=== PATIENT | female | born 1995 | race Caucasian/White ===

== ENCOUNTER 2022-05-02 06:58 | Observation (INO) | payer MEDICAID ==
[~2022-05-02] VITALS: Ht 162.6 cm; Wt 113.4 kg
[2022-05-02 08:25] LABS: Urine Amorphous Crystal FEW /hpf (None Seen); Urine Bacteria FEW /hpf (None Seen); Urine Blood Negative /uL (Negative); Urine Mucus FEW (None Seen); Urine WBC 6 /hpf (0 - 5)
== END 2022-05-02 09:22 | disposition home or self-care (01) ==
LOC: LDRP 06:58
PROVIDERS: ADMIT Obstetrics & Gynecology; ATTEND Obstetrics & Gynecology
DX: O42.912 Preterm premature rupture of membranes, unspecified as to length of time between rupture and onset of labor, second trimester (principal); Z20.822 Contact with and (suspected) exposure to COVID-19; O62.9 Abnormality of forces of labor, unspecified; O36.8130 Decreased fetal movements, third trimester, not applicable or unspecified; Z3A.27 27 weeks gestation of pregnancy; Z79.899 Other long term (current) drug therapy
CPT/HCPCS: 36415; 59025; 76815; 81001; 81002; 84112; 87426; 94760; G0378; Q0114

== ENCOUNTER 2022-06-02 10:34 | Observation (INO) | payer MEDICAID, OTHER ==
[~2022-06-02] VITALS: Ht 162.6 cm; Wt 113.4 kg
[2022-06-02] MEDS ORDERED: ceFAZolin 1GM/50ML 50 ML IV STA (11:07)
[2022-06-02] MEDS ORDERED: ACETAMINOPHEN 325 MG TAB PO ONE ×2 (11:15→11:51)
[2022-06-02] MEDS ORDERED: LACTATED RINGER'S 1,000 ML IV ONE (11:15)
[2022-06-02] MEDS ORDERED: ceFAZolin 2 GM in D5W 5% 100 ML IV STA (11:31)
[2022-06-02 12:12] LABS: Urine Bacteria NONE SEEN /hpf (None Seen); Urine Blood Negative /uL (Negative); Urine Mucus FEW (None Seen); Urine Specific Gravity 1.019 (1.001-1.035); Urine WBC 2 /hpf (0 - 5)
[2022-06-02] MEDS ORDERED: ALBUTEROL SULF 2.5 MG/0.5ML(0.5%) NEB SOLN NEB PRN (13:15)
[2022-06-02] MEDS ORDERED: AZIT1POW PO (14:08)
== END 2022-06-02 14:21 | disposition home or self-care (01) ==
LOC: UNDOADMOB 10:34 → LDRP 10:34
PROVIDERS: ADMIT Obstetrics & Gynecology; ATTEND Obstetrics & Gynecology
DX: O99.513 Diseases of the respiratory system complicating pregnancy, third trimester (principal); Z20.822 Contact with and (suspected) exposure to COVID-19; J00 Acute nasopharyngitis [common cold]; R05.9 Cough, unspecified; J40 Bronchitis, not specified as acute or chronic; J06.9 Acute upper respiratory infection, unspecified; O26.893 Other specified pregnancy related conditions, third trimester; R10.30 Lower abdominal pain, unspecified; O62.9 Abnormality of forces of labor, unspecified; Z3A.32 32 weeks gestation of pregnancy
CPT/HCPCS: 36415; 59025; 81001; 81002; 87426; 94640; 96365; G0378; J0690; J7060; 96360; 96366

== ENCOUNTER 2022-06-04 15:51 | Observation (INO) | payer OTHER ==
[~2022-06-04 15:51] MED LIST: AZIT1POW PO
[2022-06-04] MEDS ORDERED: ALBU0.084 NEB (17:29)
== END 2022-06-04 17:43 | disposition home or self-care (01) ==
LOC: UNDOADMOB 15:51 → LDRP 15:51
PROVIDERS: ADMIT Obstetrics & Gynecology; ATTEND Obstetrics & Gynecology
DX: O62.9 Abnormality of forces of labor, unspecified (principal); O26.893 Other specified pregnancy related conditions, third trimester; R10.30 Lower abdominal pain, unspecified; R05.9 Cough, unspecified; J00 Acute nasopharyngitis [common cold]; O42.913 Preterm premature rupture of membranes, unspecified as to length of time between rupture and onset of labor, third trimester; Z3A.32 32 weeks gestation of pregnancy
CPT/HCPCS: 59025; 81002; 84112; G0378; Q0114

== ENCOUNTER 2022-06-19 05:52 | Observation (INO) | payer OTHER ==
[~2022-06-19 05:52] MED LIST changes: +ALBU0.084 NEB
[2022-06-19] MEDS ORDERED: PREN-96 PO (06:41)
== END 2022-06-19 07:28 | disposition home or self-care (01) ==
LOC: LDRP 05:52
PROVIDERS: ADMIT Obstetrics & Gynecology; ATTEND Obstetrics & Gynecology
DX: O36.8130 Decreased fetal movements, third trimester, not applicable or unspecified (principal); O26.893 Other specified pregnancy related conditions, third trimester; R10.2 Pelvic and perineal pain; R51.9 Headache, unspecified; R42 Dizziness and giddiness; O99.891 Other specified diseases and conditions complicating pregnancy; M54.9 Dorsalgia, unspecified; Z3A.34 34 weeks gestation of pregnancy
CPT/HCPCS: 59025; 76818; 81002; G0378

== ENCOUNTER 2023-04-22 14:35 | Emergency (ER) | payer MEDICAID ==
[~2023-04-22] VITALS: Ht 162.6 cm; Wt 118.0 kg
[~2023-04-22 14:35] MED LIST changes: +PREN-96 PO
[2023-04-22 14:59] LABS: Basophils # (auto) 0.1 10 ^3/uL (0-0.2); Eosinophils # (auto) 0.3 10 ^3/uL (0-0.8); Eosinophils % (auto) 2.6 % (0.0-7.0); Hematocrit 40.6 % (36.0-46.0); Hemoglobin 13.6 g/dL (12.2-16.2); Lymphocytes # (auto) 3.1 10 ^3/uL (0.4-5.4); Lymphocytes % (auto) 29.9 % (10.0-50.0); Mean Corpuscular Hemoglobin 28.7 pg (28.0-32.0); Mean Corpuscular Hgb Conc. 33.5 g/dL (32.0-36.0); Mean Corpuscular Volume 85.8 fL (80.0-100.0); Monocytes # (auto) 0.4 10 ^3/uL (0-1.3); Monocytes % (auto) 3.8 % (0.0-12.0); Neutrophils # (auto) 6.5 10 ^3/uL (1.6-8.6); Neutrophils % (auto) 62.7 % (37.0-80.0); Nucleated Red Blood Cells % 0.1 %; Red Blood Cells 4.73 10^6/uL (4.0-5.20); Red Cell Distribution Width 14.8 % (11.8-14.3); White Blood Cell 10.3 10^3/uL (4.4-10.8)
[2023-04-22] MEDS ORDERED: cloNIDine HCL 0.1 MG TAB PO ONE (15:00)
[2023-04-22 15:16] LABS: INR 0.99 (0.9-1.15); Partial Thromboplastin Time 31.3 SEC (24.5-34.5); Prothrombin Time 10.4 sec (9.3-11.8)
[2023-04-22 15:33] LABS: Alanine Aminotransferase 26 U/L (7-40); Albumin 4.5 g/dL (3.2-4.8); Alkaline Phosphatase 97 U/L (46-116); Anion Gap 6 (5-15); Aspartate Aminotransferase 13 U/L (13-40); BUN/Creatinine Ratio 9.4 (10.0-20.0); Blood Urea Nitrogen 8 mg/dL (9-23); Calcium 9.5 mg/dL (8.5-10.1); Carbon Dioxide 28 mmol/L (20-30); Chloride 103 mmol/L (98-107); Glucose 119 mg/dL (74-106); Potassium 4.2 mmol/L (3.5-5.1); Sodium 137 mmol/L (136-145)
[2023-04-22 15:34] LABS: Bilirubin, Total 0.2 mg/dL (0.2-1.0); Total Protein 6.9 g/dL (5.7-8.2)
[2023-04-22 15:39] LABS: Urine Bacteria FEW /hpf (None Seen); Urine Blood Negative /uL (Negative); Urine Clarity HAZY (Clear); Urine Color Colorless (Yellow); Urine Protein, UAD Negative (Negative); Urine Specific Gravity 1.014 (1.001-1.035); Urine Urobilinogen Normal (Negative); Urine WBC 119 /hpf (0 - 5)
[2023-04-22 15:41] VITALS: BP 134/102; PULSE 109; RESP 18; TEMP 97; O2SAT 98
[2023-04-22] MEDS ORDERED: CLON0.2T PO (16:16)
[2023-04-22] MEDS ORDERED: NITR-87 PO (16:16)
== END 2023-04-22 17:04 | disposition home or self-care (01) ==
LOC: ER 14:35
DX: I10 Essential (primary) hypertension (principal); R07.89 Other chest pain; N39.0 Urinary tract infection, site not specified; E66.01 Morbid (severe) obesity due to excess calories; Z68.41 Body mass index [BMI] 40.0-44.9, adult; Z79.899 Other long term (current) drug therapy
CPT/HCPCS: 36415; 71045; 80053; 81001; 81025; 84443; 84484; 85025; 85610; 85730; 93005

== ENCOUNTER 2023-06-11 21:29 | Emergency (ER) | payer MEDICAID ==
[~2023-06-11] VITALS: Ht 162.6 cm; Wt 118.9 kg
[~2023-06-11 21:29] MED LIST changes: +CLON0.2T PO; +NITR-87 PO
[2023-06-11 21:35] VITALS: BP 147/94; PULSE 109
[2023-06-11 22:17] LABS: Rapid Strep A Screen-Throat Negative
[2023-06-11 22:21] LABS: COVID19 ANTIGEN SOFIA FIA NEGATIVE (NEGATIVE)
[2023-06-11] MEDS ORDERED: IPRATROPIUM BROM 0.5 MG/2.5ML INH SOL NEB ONE (22:30)
[2023-06-11] MEDS ORDERED: DexAMETHasone SOD PHOS 10MG/1ML VIAL INJ IM ONE (22:30)
[2023-06-11] MEDS ORDERED: ALBUTEROL MEDNEB 2.5 mg/3ml NEB NEB ONE (22:30)
[2023-06-11 22:31] LABS: Rapid Influenza A Negative (Negative); Rapid Influenza B Negative (Negative)
[2023-06-11 22:37] VITALS: RESP 20; O2SAT 100
[2023-06-11] MEDS ORDERED: PRED20TA2 PO (22:52)
[2023-06-11] MEDS ORDERED: LIDO2SOL18 MT (22:52)
[2023-06-11] MEDS ORDERED: AZITTAB PO (22:52)
[2023-06-11] MEDS ORDERED: BENZ200C64 PO (22:52)
[2023-06-11] MEDS ORDERED: guaiFENesin-CODEINE Liq 5 ML UD PO ONE (23:00)
[2023-06-11] MEDS ORDERED: cefTRIAXone SOD 1,000 MG VL IM ONE (23:00)
== END 2023-06-12 04:07 | disposition home or self-care (01) ==
LOC: ER 21:29
DX: J20.9 Acute bronchitis, unspecified (principal); J03.90 Acute tonsillitis, unspecified; R06.02 Shortness of breath; R07.89 Other chest pain; Z20.822 Contact with and (suspected) exposure to COVID-19
CPT/HCPCS: 36415; 71045; 87070; 87426; 87804; 87880; 94640; 96372; 99284; J0696; J1100; J7644

== ENCOUNTER 2023-09-01 08:30 | Emergency (ER) | payer MEDICAID ==
[~2023-09-01] VITALS: Ht 162.6 cm; Wt 117.3 kg
[~2023-09-01 08:30] MED LIST changes: +AZITTAB PO; +BENZ200C64 PO; +LIDO2SOL18 MT; +PRED20TA2 PO
[2023-09-01 08:50] VITALS: PULSE 89; RESP 19; O2SAT 97
[2023-09-01] MEDS: IPRATROPIUM BROM 0.5 MG/2.5ML INH SOL NEB ONE ×2 (09:04→09:39)
[2023-09-01] MEDS: ALBUTEROL SULF 2.5 MG/0.5ML(0.5%) NEB SOLN NEB ONE ×2 (09:04→09:40)
[2023-09-01] MEDS: cefTRIAXone SOD 1,000 MG VL IM ONE ×2 (09:20→10:52)
[2023-09-01] MEDS: methylPREDNISolone SOD SUCC 125 MG/2 ML VL IM ONE (09:20)
[2023-09-01 10:10] LABS: COVID19 ANTIGEN SOFIA FIA NEGATIVE (NEGATIVE); Rapid Influenza A Negative (Negative); Rapid Influenza B Negative (Negative)
[2023-09-01 10:41] LABS: Urine Bacteria NONE SEEN /hpf (None Seen); Urine Blood Negative /uL (Negative); Urine Clarity HAZY (Clear); Urine Color Yellow (Yellow); Urine Mucus FEW (None Seen); Urine Protein, UAD TRACE (Negative); Urine Specific Gravity 1.024 (1.001-1.035); Urine Urobilinogen Normal (Negative); Urine WBC 6 /hpf (0 - 5)
[2023-09-01] MEDS ORDERED: PRED20TA2 PO (10:44)
[2023-09-01] MEDS ORDERED: LEVO500T91 PO (10:44)
[2023-09-01 11:18] VITALS: BP 141/88; PULSE 100; RESP 18; TEMP 97.2; O2SAT 94
== END 2023-09-01 11:22 | disposition home or self-care (01) ==
LOC: ER 08:30
DX: J20.9 Acute bronchitis, unspecified (principal); N39.0 Urinary tract infection, site not specified; Z20.822 Contact with and (suspected) exposure to COVID-19
CPT/HCPCS: 36415; 81001; 87426; 87804; 94640; 96372; 99284; J0696; J2930; J7644

== ENCOUNTER 2024-05-26 19:34 | Emergency (ER) | payer MEDICAID ==
[~2024-05-26] VITALS: Ht 162.6 cm; Wt 119.0 kg
[~2024-05-26 19:34] MED LIST changes: +LEVO500T91 PO
[2024-05-26 20:35] LABS: COVID19 ANTIGEN SOFIA FIA NEGATIVE (NEGATIVE)
[2024-05-26 20:36] LABS: Rapid Influenza A Negative (Negative); Rapid Influenza B Negative (Negative)
[2024-05-26 21:08] VITALS: TEMP 98.5
[2024-05-26] MEDS: DexAMETHasone SOD PHOS 10MG/1ML VIAL INJ PO ONE (21:14)
[2024-05-26] MEDS: AZITHROMYCIN 250 MG TAB PO ONE (21:14)
[2024-05-26] MEDS: ALBUTEROL SULF 2.5 MG/0.5ML(0.5%) NEB SOLN NEB ONE (21:15)
[2024-05-26] MEDS: SODIUM CHLORIDE 0.9% 1,000 ML IV ONE (22:15)
[2024-05-26 23:47] LABS: Basophils # (auto) 0.1 10 ^3/uL (0-0.2); Basophils % (auto) 0.9 % (0.0-2.0); Eosinophils # (auto) 0.3 10 ^3/uL (0-0.8); Eosinophils % (auto) 3.3 % (0.0-7.0); Hematocrit 42.3 % (36.0-46.0); Hemoglobin 13.9 g/dL (12.2-16.2); Mean Corpuscular Hemoglobin 30.1 pg (28.0-32.0); Mean Corpuscular Hgb Conc. 32.9 g/dL (32.0-36.0); Mean Corpuscular Volume 91.6 fL (80.0-100.0); Monocytes # (auto) 0.3 10 ^3/uL (0-1.3); Neutrophils # (auto) 6.7 10 ^3/uL (1.6-8.6); Neutrophils % (auto) 79.8 % (37.0-80.0); Nucleated Red Blood Cells % 0.1 %; Platelet Count (auto) 338 10^3/uL (140-450); Red Blood Cells 4.61 10^6/uL (4.0-5.20); Red Cell Distribution Width 14.4 % (11.8-14.3); White Blood Cell 8.4 10^3/uL (4.4-10.8)
[2024-05-26 23:58] LABS: Chloride 108 mmol/L (98-107); Potassium 3.6 mmol/L (3.5-5.1); Sodium 138 mmol/L (136-145)
[2024-05-26 23:59] LABS: Anion Gap 7 (5-15); Carbon Dioxide 23 mmol/L (20-31)
[2024-05-27] LABS: Calcium 8.9 mg/dL (8.7-10.4)
[2024-05-27 00:05] LABS: BUN/Creatinine Ratio 10.8 (10.0-20.0); Blood Urea Nitrogen 9 mg/dL (9-23); Glucose 96 mg/dL (74-106)
[2024-05-27 00:12] VITALS: BP 135/85; PULSE 109; RESP 16; O2SAT 95
== END 2024-05-27 00:37 | disposition home or self-care (01) ==
LOC: ER 19:34
DX: B34.9 Viral infection, unspecified (principal); Z20.822 Contact with and (suspected) exposure to COVID-19; Z79.899 Other long term (current) drug therapy; Z79.52 Long term (current) use of systemic steroids
CPT/HCPCS: 36415; 71046; 80048; 85025; 87426; 87804; 94640; 96360; 99284; J1100; J7030

== ENCOUNTER 2024-06-10 18:01 | Emergency (ER) | payer MEDICAID ==
[~2024-06-10] VITALS: Ht 162.6 cm; Wt 115.0 kg
--- NOTE | 2024-06-10 18:08 | ECG ---
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
--- NOTE | 2024-06-10 19:55 | ED.PDOC ---
History of Present Illness HPI Comments 29 y/o F, with a Hx of morbid obesity, presents with c/o left-sided chest and left-arm pain w/numbness, today. Patient endorses on sudden and unprovoked onset of burning pain that originated from her chest and radiates towards her arm w/associated numbness that began at rest, while sitting at home, watching television at 1440, this evening. Patient comments also on noticing her blood pressure being elevated, with no prior Hx of chest pain or HTN in the past. Patient states on laying on her left-sided and resting for approximately an hour in an attempt to relieve pain to no success. Patient admits to recent stress but refutes any recent injuries, sick contact, travel, spoiled food, or substance use/exposure in addition to any relevant or pertinent Hx. Patient denies having any shortness of breath, palpitations, nausea, vomiting, fever, chills, or other associated symptoms or modifiers at this time. Chief Complaint: Chest Pain Time Seen by MD: 19:40 Primary Care Provider: PLANNED PARENT PORTILLO Reviewed Notes: Nurses Notes, Medications, Allergies Allergies: Coded Allergies: NO KNOWN ALLERGIES (Unverified , 05/02/22) Home Meds Active Scripts Levofloxacin Hemihydrate (LEVOFLOXACIN) 500 Mg Tab, 500 MG PO DAILY for 10 Days, #10 MG Prov:RAYSA PELAEZ MD 09/01/23 Prednisone (Prednisone) 20 Mg Tab, 20 MG PO DAILY for 5 Days, #5 MG Prov:RAYSA PELAEZ MD 09/01/23 Benzonatate (Benzonatate) 200 Mg Cap, 1 CAP PO TID, #30 CAP as needed for cough Prov:BRENDA CASTILLO NP 06/11/23 Lidocaine Hcl (Lidocaine Viscous) 2 % Annie, 5 ML MT Q4HR, #100 ML As needed for sore throat Prov:BRENDA CASTILLO NP 06/11/23 Prednisone (Prednisone) 20 Mg Tab, 1 TAB PO BID for 5 Days, #10 TAB Start tomorrow with food Prov:BRENDA CASTILLO NP 06/11/23 Azithromycin (Zithromax Z-Alex) 250 Mg Tab, 1 TAB PO DAILY for 5 Days, #6 TAB 2 tablets today then 1 tablet starting tomorrow for 4-days Prov:BRENDA CASTILLO NP 06/11/23 Clonidine Hydrochloride (Clonidine Hcl) 0.2 Mg Tab, 1 TAB PO BID, #20 TAB 0 Refills To be used if systolic blood pressure is above 160 or diastolic pressures above 95 Prov:TERRI BRENNER PAC 04/22/23 Nitrofurantoin Monohydrate Mac (Macrobid) 100 Mg Cap, 100 MG PO BID for 7 Days, #14 CAP Prov:TERRI BRENNER PAC 04/22/23 Reported Medications Vit W/ Ferrous Fumara ( One Daily) Daily Tab, 1 TAB PO DAILY, #90 TAB 3 Refills 06/19/22 Albuterol Sulfate (Albuterol Sulfate) 0.083 % Neb, 2 PUFF NEB QID PRN for SHORTNESS OF BREATH, #50 INHALER 3 Refills 06/04/22 Azithromycin (Zithromax) 1 Gm Pow, 1 PACK PO ONCE, #1 PACK 06/02/22 Information Source: Patient Mode of Arrival: Ambulatory Severity: Moderate Timing: Hours Duration: Since onset Prehospital treatment: None Past Medical History Past Medical History (Other): morbid obesity Surgical History: Denies all surgeries SUPERVISOR GARAGE History: No Pertinent SUPERVISOR GARAGE History Family History Family History: Reviewed,noncontributory to illness, No family hx of Cancer, No family hx of DM, No family hx of Heart dianelys, No family hx of HTN, No family hx ofKidney dianelys, No family hx of Liver dianelys, No family hx of Lung dianelys, No family hx of Stroke Social History Smoker: Non-Smoker Alcohol: Denies ETOH Use Drugs: Denies Drug Use Lives In: Home Constitutional: denies: chills, diaphoresis, fatigue, fever, malaise, sweats, weakness, others EENTM: denies: blurred vision, double vision, ear bleeding, ear discharge, ear drainage, ear pain, ear ringing, eye pain, eye redness, hearing loss, mouth pain, mouth swelling, nasal discharge, nose bleeding, nose congestion, nose myranda n, photophobia, tearing, throat pain, throat swelling, voice changes, others Respiratory: denies: cough, hemoptysis, orthopnea, SOB at rest, shortness of breath, SOB with excertion, stridor, wheezing, others Cardiovascular: reports: chest pain, left arm pain; denies: dizzy spells, diaphoresis, Dyspnea on exertion, edema, irregular heart beat, lightheadedness, palpitations, PND, syncope, others Gastrointestinal: denies: abdomen distended, abdominal pain, blood streaked bowels, constipated, diarrhea, dysphagia, difficulty swallowing, hematemesis, melena, nausea, poor appetite, poor fluid intake, rectal bleeding, rectal pain, vomiting, others Genitourinary: denies: abnormal vagina bleeding, burning, dyspareunia, dysuria, flank pain, frequency, hematuria, incontinence, pain, , vagina discharge, urgency, others Neurological: reports: numbness (left-arm); denies: dizziness, fainting, headache, left sided numbness, left sided weakness, paresthesia, pre-existing de ficit, right sided numbness, right sided weakness, seizure, speech problems, tingling, tremors, weakness, others Musculoskeletal: denies: back pain, gout, joint pain, joint swelling, muscle pain, muscle stiffness, neck pain, others Integumetry: denies: bruises, change in color, change in hair/nails, dryness, laceration, lesions, lumps, rash, wounds, others Allergic/Immunocompromised: denies: Difficulty Healing, Frequent Infections, Hives, Itching, others Hematologic/Lymphatic: denies: anemia, blood clots, easy bleeding, easy bruising, swollen glands, others Endocrine: denies: excessive hunger, excessive sweating, excessive thirst, excessive urination, flushing, intolerance to cold, intolerance to heat, unexplained weight gain, unexplained weight loss, others Psychiatric: denies: anxiety, bipolar disorder, depression, hopeless, panic disorder, schizophrenia, sleepless, suicidal, others All Other Systems: Reviewed and Negative Physical Exam General Appearance: Moderate Distress HEENT: Normal ENT Inspection, Pharynx Normal, TMs Normal Neck: Full Range of Motion, Non-Tender, Normal, Normal Inspection Respiratory: Chest Non-Tender, Lungs Clear, No Accessory Muscle Use, No Respiratory Distress, Normal Breath Sounds Cardiovascular: No Edema, No JVD, No Murmur, No Gallop, Normal Peripheral Pulses, Regular Rate/Rhythm Breast Exam: Deferred Gastrointestinal: No Organomegaly, Non Tender, No Pulsatile Mass, Normal Bowel Sounds, Soft Genitalia: Deferred Pelvic: Deferred Rectal: Deferred Extremities: No calf tenderness, Normal capillary refill, Normal inspection, Normal range of motion, Non-tender, No pedal edema Musculoskeletal : Apperance: Normal Neurologic: Alert, car framer II-XII nml as Tested, No Motor Deficits, Normal Affect, Normal Mood, No Sensory Deficits Cerebellar Function: Normal Reflexes: Normal Skin: Dry, Normal Color, Warm Peripheral Pulses: 3+ Radial (R), 3+ Radial (L) Lymphatic: No Adenopathy Was a procedure done? Was a procedure done?: No EKG EKG : Pulse Rate (adult): 94 [place]: Normal Cardiac Rhythm: NSR Block: None Hypertrophy: None ST: Normal Differential Dx Considerations may include: NE, ACS, angina, costochondritis, musculoskeletal pain, gastritis, gastroenteritis X-Ray, Labs, Meds, VS Vital Signs Date Time Temp Pulse Resp B/P (MAP) Pulse Ox O2 Delivery O2 Flow Rate FiO2 06/10/24 19:55 94 06/10/24 19:52 98.5 105 20 149/111 (124) 96 98.5 06/10/24 19:52 105 20 96 Room Air 06/10/24 18:10 98.8 114 16 142/99 (113) 99 06/10/24 18:07 94 Lab Test 06/10/24 19:06 06/10/24 18:03 Range/Units Troponin I High Sensitivity < 3 L < 3 L </=34 ng/L D-Dimer, Quantitative 0.28 0.0-0.49 mg/L FEU Current Medications Medications (Trade) Dose Ordered Sig/Marcela Route Start Time Stop Time Status Last Admin Aspirin 325 mg ONCE ONCE PO 06/10/24 19:45 06/10/24 19:46 DC 06/10/24 20:06 Patient alert. Complaining of chest discomfort. States that she is feeling better after coming to the ER. Vitals stable. Cardiac marker within normal limits. EKG reviewed does not show any acute changes. She is anxious. No leg swelling. Saturation pristine on room air. Heart rate clinically is normal. Respiratory rate within normal limits. She does have a history of hypotension. Was told to take her medication. Was told to her to exercise. Diet control. Counseled patient on effects of obesity for 15 minutes. Explained to the patient. Was told to follow up with her primary care physician. Was told to come back if there is any problem. Time of 1ST Reevaluation: 20:10 Reevaluation 1ST: Improved Time of 2ND Reevaluation: 20:42 Reevaluation 2ND: Improved Patient Education/Counseling: Diagnosis, Treatment Family Education/Counseling: No Family Present Departure 1 Departure Time of Disposition: 20:45 Impression: Primary Impression: Musculoskeletal chest pain Additional Impressions: Anxiety HTN (hypertension) Qualified Codes: I10 - Essential (primary) hypertension Disposition: 01 HOME / SELF CARE / HOMELESS Condition: Good Discharged With: Self Critical Care Note Critical Care Time?: No Stability Stability form required: No Heart Score Heart Score: Heart Score Response (Comments) Value History Slightly Suspicious 0 EKG Normal 0 Age <45 0 Risk Factors No known risk factors 0 Troponin Normal limit 0 Total 0 I personally scribed for RAYSA PELAEZ MD ([email or web address]) on 06/10/24 at 19:55. Electronically submitted by Richard Ochoa ([email or web address]). RAYSA PELAEZ MD Jun 10, 2024 19:55
[2024-06-10] MEDS: ASPirin 325 MG TAB PO ONE (20:06)
[2024-06-10 21:20] VITALS: BP 135/83; PULSE 101; RESP 20; TEMP 97.4; O2SAT 97
[2024-06-10] MEDS: cloNIDine HCL 0.1 MG TAB PO ONE (21:24)
== END 2024-06-10 21:21 | disposition home or self-care (01) ==
LOC: ER 18:01
DX: R07.89 Other chest pain (principal); F41.9 Anxiety disorder, unspecified; I10 Essential (primary) hypertension; E66.01 Morbid (severe) obesity due to excess calories; Z79.52 Long term (current) use of systemic steroids; Z68.41 Body mass index [BMI] 40.0-44.9, adult
CPT/HCPCS: 36415; 84484; 85379; 93005

== ENCOUNTER 2024-12-14 17:15 | Inpatient (IN) | payer MEDICAID ==
[~2024-12-14] VITALS: Ht 162.6 cm; Wt 125.5 kg
[2024-12-14] MEDS: SODIUM CHLORIDE 0.9% 1,000 ML IV ONE ×2 (18:13→21:45)
--- NOTE | 2024-12-14 18:13 | ED.PDOC ---
HPI Comments HPI: Past Medical History: Denies any Past Surgical History: Denies any Social History: Marijuana use only HPI: Poor Historian. 29-year-old female presents to emergency department for two day history of multiple complaints. She complains of some forehead nonspecific headache and left anterior chest wall pain that is tender to palpation with associated left upper and left lower extremities occasional numbness and tingling. Patient states she does not take any medications however she noted that her blood pressure is elevated in the 150s systolically at home. REVIEW OF SYSTEMS: CONSTITUTIONAL: Denies acute: fever, diaphoresis, chills, HEAD: Denies acute: photophobia Eyes: Denies acute: Double vision, vision loss, eye pain, eye discharge. EARS: Denies acute: tinnitus, hearing loss, ear discharge, ear pain, THROAT: Denies acute: sore throat, swelling, difficulty swallowing , pain with swallowing, change in voice. NECK: Denies acute: neck pain, neck swelling, stiff neck. HEART: Denies acute : , palpitations, LUNGS: Denies acute: SOB, wheezing, cough, hemoptysis ABDOMEN: Denies acute: abdominal pain, Nausea, Vomiting, diarrhea, melena , hematemesis, hematochezia SKIN: Denies acute: rash, redness, lesions, itchiness. EXTREMITIES: Denies acute: calf pain, weakness, denies pain in extremity. Denies acute: Low back pain. Neuro: Denies acute: focal neurological deficit, motor or sensory focal neurological deficit, tremors, seizure like activity, confusion, dizziness, change in mental status, loss of bowel or bladder function, cauda equina like symptoms. : Denies acute: dysuria, hematuria, flank pain, increase in urinary frequency. PSYCH: Denies acute: hallucination, suicidal ideation, homicidal ideation. FEMALE: Denies acute: abnormal vaginal bleeding, foul odor, unusual discharge. PHYSICAL EXAM: General: ---[id number]----acute distress, awake and alert. Head: normocephalic, atraumatic. Neck: supple, trachea is midline, no swelling. Throat: Normal phonation. Eyes:, no erythema, no purulent discharge, no proptosis, no icterus. Heart: regular tachycardic, no significant murmur appreciated. Lungs: no apparent respiratory distress, Able to speak in full sentences. No wheezing, no rhonchi, no crackles. No stridors Clear to auscultation bilaterally. Abdomen: Suprapubic left lower quadrant mild tender to palpation, non distended, soft, no guarding, no rebound, + bowel sounds. Neuro: Awake, Alert, oriented to name, self, situation, follows commands GCS=15. Speech is normal. Skin: no petechia, no purpura, no cyanosis, non-pale, not jaundice. Lower extremities: --trace bilateral - Pitting edema no deformity, no focal swelling, no calf TTP. Makes eye contact. moves all four extremities. Face: no apparent facial droop. Ambulating in the ED independently. No nuchal rigidity, Kernig's sign, Brudzinski's sign, no meningeal signs. ED COURSE: Chief Complaint: Chest Pain Time Seen by MD: 17:25 Primary Care Provider: PLANNED PARENT PORTILLO Reviewed Notes: Nurses Notes, Medications, Allergies Allergies: Coded Allergies: NO KNOWN ALLERGIES (Unverified , 05/02/22) Home Meds Active Scripts Levofloxacin Hemihydrate (LEVOFLOXACIN) 500 Mg Tab, 500 MG PO DAILY for 10 Days, #10 MG Prov:RAYSA PELAEZ MD 09/01/23 Prednisone (Prednisone) 20 Mg Tab, 20 MG PO DAILY for 5 Days, #5 MG Prov:RAYSA PELAEZ MD 09/01/23 Benzonatate (Benzonatate) 200 Mg Cap, 1 CAP PO TID, #30 CAP as needed for cough Prov:BRENDA CASTILLO WAY INSPECTOR 06/11/23 Lidocaine Hcl (Lidocaine Viscous) 2 % Annie, 5 ML MT Q4HR, #100 ML As needed for sore throat Prov:BRENDA CASTILLO NP 06/11/23 Prednisone (Prednisone) 20 Mg Tab, 1 TAB PO BID for 5 Days, #10 TAB Start tomorrow with food Prov:BRENDA CASTILLO NP 06/11/23 Azithromycin (Zithromax Z-Alex) 250 Mg Tab, 1 TAB PO DAILY for 5 Days, #6 TAB 2 tablets today then 1 tablet starting tomorrow for 4-days Prov:BRENDA CASTILLO WAY INSPECTOR 06/11/23 Clonidine Hydrochloride (Clonidine Hcl) 0.2 Mg Tab, 1 TAB PO BID, #20 TAB 0 Refills To be used if systolic blood pressure is above 160 or diastolic pressures above 95 Prov:TERRI BRENNER PAC 04/22/23 Nitrofurantoin Monohydrate Mac (Macrobid) 100 Mg Cap, 100 MG PO BID for 7 Days, #14 CAP Prov:TERRI BRENNER PAC 04/22/23 Reported Medications Vit W/ Ferrous Fumara ( One Daily) Daily Tab, 1 TAB PO DAILY, #90 TAB 3 Refills 06/19/22 Albuterol Sulfate (Albuterol Sulfate) 0.083 % Neb, 2 PUFF NEB QID PRN for SHORTNESS OF BREATH, #50 INHALER 3 Refills 06/04/22 Azithromycin (Zithromax) 1 Gm Pow, 1 PACK PO ONCE, #1 PACK 06/02/22 Information Source: Patient, Spouse Mode of Arrival: Ambulatory Past Medical History PAST MEDICAL HISTORY: Denies Surgical History: Denies all surgeries 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 Was a procedure done?: No CP Differential Dx Differential Diagnosis: N/A Differential Diagnosis: Other (Ddx include but not limitied to gastritis, musculoskeletal pain, radiculopathy, atypical chest pain, dissection, aneurysm, ACS, unstable angina, hiatal hernia, GERD, anxiety, costochondritis, PE, pneumothroax, neoplasm, cardiac ischemia, drug abuse, anemia.) X-Ray, Labs, Meds, VS Vital Signs Date Time Temp Pulse Resp B/P (MAP) Pulse Ox O2 Delivery O2 Flow Rate FiO2 12/14/24 19:50 140/87 12/14/24 19:35 98.1 116 20 127/83 (98) 96 98.1 12/14/24 19:35 116 96 Room Air* 0 21 12/14/24 18:15 129 13 96 Room Air* 0 21 12/14/24 18:15 129 13 146/80 (102) 96 12/14/24 18:11 98.2 140 18 152/94 (113) 98 98.2 Lab Test 12/14/24 20:35 12/14/24 19:38 12/14/24 18:34 12/14/24 18:24 Range/Units Troponin I High Sensitivity < 3 L < 3 L </=34 ng/L Urine Color Yellow Yellow Urine Clarity Clear Clear Urine pH 5.5 5.0-9.0 Urine Specific Riley 1.026 1.001-1.035 Urine Protein Negative Negative Urine Ketones Negative Negative Urine Blood Trace H Negative /uL Urine Nitrite Negative Negative Urine Bilirubin Negative Negative Urine Urobilinogen Normal Negative mg/dL Urine Leukocyte Esterase Negative Negative /uL Urine RBC 2 0 - 4 /hpf Urine Microscopic WBC 3 0-5 /HPF Urine Squamous Epithelial Cells Few <5 /hpf Urine Bacteria None seen None Seen /hpf Urine Mucus Few None Seen Urine Glucose Normal Normal mg/dL Urine Opiates Screen Neg NEGATIVE Urine Fentanyl Screen Neg NEGATIVE Urine Barbiturates Screen Neg NEGATIVE Urine Phencyclidine Screen Neg NEGATIVE Urine Amphetamines Screen Neg NEGATIVE Urine Benzodiazepines Screen Neg NEGATIVE Urine Cocaine Screen Neg NEGATIVE Urine Cannabinoids Screen Pos NEGATIVE Urine Test Negative Negative Test 12/14/24 18:11 Range/Units White Blood Count 8.5 4.4-10.8 10^3/uL Red Blood Count 4.82 4.0-5.20 10^6/uL Hemoglobin 14.6 12.2-16.2 g/dL Hematocrit 42.4 36.0-46.0 % Mean Corpuscular Volume 88.0 80.0-100.0 fL Mean Corpuscular Hemoglobin 30.3 28.0-32.0 pg Mean Corpuscular Hemoglobin Concent 34.4 32.0-36.0 g/dL Red Cell Distribution Width 14.1 11.8-14.3 % Platelet Count 330 140-450 10^3/uL Mean Platelet Volume 7.4 6.9-10.8 fL Neutrophils (%) (Auto) 82.3 H 37.0-80.0 % Lymphocytes (%) (Auto) 8.2 L 10.0-50.0 % Monocytes (%) (Auto) 6.6 0.0-12.0 % Eosinophils (%) (Auto) 2.0 0.0-7.0 % Basophils (%) (Auto) 0.9 0.0-2.0 % Neutrophils # (Auto) 7.0 1.6-8.6 10 ^3/uL Lymphocytes # (Auto) 0.7 0.4-5.4 10 ^3/uL Monocytes # (Auto) 0.6 0-1.3 10 ^3/uL Eosinophils # (Auto) 0.2 0-0.8 10 ^3/uL Basophils # (Auto) 0.1 0-0.2 10 ^3/uL Nucleated Red Blood Cells 0.1 % Sodium Level 137 136-145 mmol/L Potassium Level 4.1 3.5-5.1 mmol/L Chloride Level 101 98-107 mmol/L Carbon Dioxide Level 26 20-31 mmol/L Anion Gap 10 5-15 Blood Urea Nitrogen 8 L 9-23 mg/dL Creatinine 0.95 0.550-1.02 mg/dL Glomerular Filtration Rate Calc 83 >90 mL/min BUN/Creatinine Ratio 8.4 L 10.0-20.0 Serum Glucose 84 74-106 mg/dL Lactic Acid Level 1.1 0.4-2.0 mmol/L Calcium Level 10.1 8.7-10.4 mg/dL Magnesium Level 1.6 1.6-2.6 mg/dL Total Bilirubin 0.4 0.2-1.0 mg/dL Aspartate Amino Transferase (AST) 14 13-40 U/L Alanine Aminotransferase (ALT) 35 7-40 U/L Alkaline Phosphatase 88 46-116 U/L Troponin I High Sensitivity < 3 L </=34 ng/L C-Reactive Protein High Sensitivity 1.29 H <1.0 mg/dL B-Type Natriuretic Peptide 2.77 0-100 pg/mL Total Protein 7.2 5.7-8.2 g/dL Albumin 4.8 3.2-4.8 g/dL Lipase 31 12-53 U/L Current Medications Medications (Trade) Dose Ordered Sig/Marcela Route Start Time Stop Time Status Last Admin Sodium Chloride 1,000 ml @ 1,000 mls/hr Q1H ONCE IV 12/14/24 17:45 12/14/24 18:44 DC 12/14/24 18:13 Nitroglycerin (Ntrostat Sublingual) 0.4 mg ONCE ONCE SL 12/14/24 19:45 12/14/24 19:46 DC 12/14/24 19:50 Ketorolac Tromethamine (Toradol Injection) 30 mg ONCE ONCE IV 12/14/24 20:00 12/14/24 20:14 DC 12/14/24 20:[address] [address] Ph: [phone] DIAGNOSTIC IMAGING Diagnostic Imaging Report : [id number] Signed PATIENT: UCHE HAUESR ACCT: [id number] UNIT: [id number] : 1995 LOC: ER ROOM / BED: / AGE / SEX: 29 / F ADM STATUS: REG ER SERVICE [id number] ORDERING PHYSICIAN: LEELA COMBS DO PROCEDURE(s): CXRP - CHEST PORTABLE REASON: cp ORDER NUMBER(s): [id number], ACCESSION NUMBER(s): [id number] INDICATION: cp TECHNIQUE: Frontal view of the chest. COMPARISON: XY CHEST XRAY 1 VIEW on DOS: 06/11/23, XY CHEST PORTABLE on DOS: 04/22/23 FINDINGS: Findings. The heart and mediastinal contours are grossly unremarkable. There is no evidence of pleural disease. The lungs are clear. The bony structures of the chest are intact without fracture. IMPRESSION: 1. No evidence of acute disease. ATED BY: DANIELLA CÁRDENAS MD DICTATED DATE/TIME: 12/14/241926 SIGNED BY: DANIELLA CÁRDENAS MD SIGNED DATE/TIME: 12/14/241926 CC: [address] [address] Ph: [phone] DIAGNOSTIC IMAGING Diagnostic Imaging Report : [id number] Signed PATIENT: UCHE HAUSER ACCT: [id number] UNIT: [id number] : 1995 LOC: ER ROOM / BED: / AGE / SEX: 29 / F ADM STATUS: REG ER SERVICE 1900 ORDERING PHYSICIAN: LEELA COMBS DO PROCEDURE(s): ABPL - CT AB PEL WO CON-NO ORAL OR IV REASON: LLQ PAIN ORDER NUMBER(s): [id number], ACCESSION NUMBER(s): [id number] Exam: CT CT AB PEL WO CON-NO ORAL OR IV History: LLQ PAIN Comparison Study: None Technique: Multidetector spiral CT of the abdomen was performed from lung bases to pubic symphysis. Imaging was performed without IV contrast. Axial, coronal and sagittal multiplanar reformats were obtained from the axial data set by the technologist. Radiation Dose : 1. Abdomen/Pelvis: CTDIvol 27.45 mGy, DLP 1536.67 mGy*cm. Findings: Evaluation of solid organs is limited due to lack of intravenous contrast use. Lung Bases: No abnormality demonstrated. Liver: Liver is normal in size. No focal lesions noted. Gallbladder and Biliary Tree: No abnormality demonstrated. Spleen: No abnormality demonstrated. Pancreas: No abnormality demonstrated. Adrenal Glands: No abnormality demonstrated. Kidneys: No abnormality demonstrated. Bladder: Non distended. Bowel: Stomach appears grossly unremarkable. No abnormally dilated or thick- walled loops of large or small bowel noted. Appendix appears unremarkable. Ascites: Absent Lymphadenopathy: No evidence of lymphadenopathy. Abdominal Wall and Mesentery: Unremarkable. Vasculature: Unremarkable given lack of intravenous contrast. Pelvic Organs: Unremarkable Musculoskeletal: No bony lesions or fracture. IMPRESSION: No abnormality demonstrated. Radiation optimization: All CT scans at this facility use at least one of these dose optimization techniques: automated exposure control mA and/or kV adjustment per patient size (includes targeted exams where dose is matched to clinical indication) or iterative reconstruction. ATED BY: RAH AL MD DICTATED DATE/TIME: 12/14/241938 SIGNED BY: RAH AL MD SIGNED DATE/TIME: 12/14/241938 CC: [place] [address] Ph: [phone] DIAGNOSTIC IMAGING Diagnostic Imaging Report : [id number] Signed PATIENT: UCHE HAUSER ACCT: [id number] UNIT: [id number] : 1995 LOC: ER ROOM / BED: / AGE / SEX: 29 / F ADM STATUS: REG ER SERVICE 190 ORDERING PHYSICIAN: LEELA COMBS DO PROCEDURE(s): PELUS - PELVIC REASON: LLQ PAIN ORDER NUMBER(s): [id number], ACCESSION NUMBER(s): [id number] INDICATION: LLQ PAIN TECHNIQUE: Multiple real-time grayscale transabdominal sonographic images along with color and duplex Doppler of the uterus and ovaries were obtained. COMPARISON: None FINDINGS: Uterus measures approximately 7.3 x 5.3 x 4.4 cm and appears unremarkable apart from a probable small 7 mm nabothian cyst. Endometrium measures 5 mm in thickness and appears unremarkable. Right ovary measures approximately 3.1 x 2.4 x 3.1 cm and the left 3.7 x 2.4 x 3.9 cm. Both ovaries appear within normal limits demonstrating small follicles. Color and duplex Doppler interrogation of the ovaries demonstrated symmetric vascular flow to both ovaries. IMPRESSION: No abnormality demonstrated. ATED BY: RAH AL MD DICTATED DATE/TIME: 12/14/241955 SIGNED BY: RAH AL MD SIGNED DATE/TIME: 12/14/241955 CC: [place] [address] Ph: [phone] DIAGNOSTIC IMAGING Diagnostic Imaging Report : [id number] Signed PATIENT: UCHE HAUSER ACCT: [id number] UNIT: [id number] : 1995 LOC: ER ROOM / BED: / AGE / SEX: 29 / F ADM STATUS: REG ER SERVICE 99 ORDERING PHYSICIAN: LEELA COMBS DO PROCEDURE(s): HWOCT - HEAD WITHOUT CONTRAST REASON: ORDER NUMBER(s): [id number], ACCESSION NUMBER(s): [id number] CT HEAD WITHOUT CONTRAST INDICATION: BLANKENSHIP COMPARISON: None TECHNIQUE: CT of the head without intravenous contrast. RADIATION DOSE: CTDIvol: mGy, DLP: mGy*cm FINDINGS: There is no evidence of intracranial hemorrhage, infarct, extra-axial collection, mass effect, midline shift, herniation or hydrocephalus. The ventricles, sulci and cisterns are normal. The taylor-white differentiation is normal. Visualized paranasal sinuses and mastoid air cells are clear. Soft tissues and osseous structures are unremarkable. IMPRESSION: No intracranial abnormality. ATED BY: RAH AL MD DICTATED DATE/TIME: 12/14/242048 SIGNED BY: RAH AL MD SIGNED DATE/TIME: 12/14/242048 CC: Time of 1ST Reevaluation: 18:55 Reevaluation 1ST: Unchanged Patient Education/Counseling: Diagnosis, Treatment, Prognosis Family Education/Counseling: No Family Present Comments Patient presented with the above HPI.---cardiac---workup was initiated. patient was found with the above mentioned diagnosis. the following medications were ordered: please refer to order lists of meds and tests obtained by myself Dr. Combs. Patient ED course and VS have been stabilized. Patient has been reassessed in the ED and remained in a stable condition. Pertinent incidental findings were discussed with the patient and/or family. Patient/family voices understanding and is agreeable with plan. Patient has been observed in the ED adequate length of time to insure improvement/stability. Escalation of care considered: Consideration of escalation to observation or admission Patient was ADMITTED to the medicine team for further evaluation and treatment of their presentation. All the reports of any imaging studies that were ordered by myself were reviewed by myself. Departure 1 Departure Time of Disposition: 20:00 Impression: Primary Impression: COVID-19 virus infection Additional Impressions: Chest pain Left lower quadrant pain Disposition: ADMITTED INPATIENT Admit to: [facility] Condition: Guarded Discharged With: Self Critical Care Note Critical Care Time?: No Heart Score Heart Score: Heart Score Response (Comments) Value History Slightly Suspicious 0 EKG Normal 0 Age <45 0 Risk Factors No known risk factors 0 Troponin Normal limit 0 Total 0 I personally scribed for LEELA COMBS DO ([email or web address]) on 12/14/24 at 18:13. Electronically submitted by Claudio Velazquez ([employer]). I personally scribed for LEELA COMBS DO ([email or web address]) on 12/14/24 at 20:44. Electronically submitted by Claudio Velazquez ([employer]). I personally scribed for LEELA COMBS DO ([email or web address]) on 12/14/24 at 20:53. Electronically submitted by Claudio Velazquez ([employer]). I personally scribed for LEELA COMBS DO ([email or web address]) on 12/14/24 at 21:06. Electronically submitted by Lul Parsons ([facility]). LEELA COMBS DO December 14, 2024 18:13
[2024-12-14 18:15] VITALS: PULSE 129; RESP 13; O2SAT 96
[2024-12-14 18:31] LABS: Basophils # (auto) 0.1 10 ^3/uL (0-0.2); Basophils % (auto) 0.9 % (0.0-2.0); Eosinophils # (auto) 0.2 10 ^3/uL (0-0.8); Hematocrit 42.4 % (36.0-46.0); Hemoglobin 14.6 g/dL (12.2-16.2); Lymphocytes # (auto) 0.7 10 ^3/uL (0.4-5.4); Lymphocytes % (auto) 8.2 % (10.0-50.0); Mean Corpuscular Hemoglobin 30.3 pg (28.0-32.0); Mean Corpuscular Hgb Conc. 34.4 g/dL (32.0-36.0); Monocytes # (auto) 0.6 10 ^3/uL (0-1.3); Monocytes % (auto) 6.6 % (0.0-12.0); Neutrophils % (auto) 82.3 % (37.0-80.0); Nucleated Red Blood Cells % 0.1 %; Platelet Count (auto) 330 10^3/uL (140-450); Red Blood Cells 4.82 10^6/uL (4.0-5.20); Red Cell Distribution Width 14.1 % (11.8-14.3); White Blood Cell 8.5 10^3/uL (4.4-10.8)
[2024-12-14 18:43] LABS: Urine Bacteria None Seen /hpf (None Seen)
[2024-12-14 18:47] LABS: Alanine Aminotransferase 35 U/L (7-40); Alkaline Phosphatase 88 U/L (46-116); Anion Gap 10 (5-15); Aspartate Aminotransferase 14 U/L (13-40); BUN/Creatinine Ratio 8.4 (10.0-20.0); Bilirubin, Total 0.4 mg/dL (0.2-1.0); Calcium 10.1 mg/dL (8.7-10.4); Carbon Dioxide 26 mmol/L (20-31); Chloride 101 mmol/L (98-107); Glucose 84 mg/dL (74-106); Potassium 4.1 mmol/L (3.5-5.1); Sodium 137 mmol/L (136-145); Total Protein 7.2 g/dL (5.7-8.2)
[2024-12-14 18:50] LABS: Albumin 4.8 g/dL (3.2-4.8); Blood Urea Nitrogen 8 mg/dL (9-23); Magnesium 1.6 mg/dL (1.6-2.6)
[2024-12-14 18:52] LABS: Urine Blood TRACE /uL (Negative); Urine Clarity Clear (Clear); Urine Color Yellow (Yellow); Urine Mucus FEW (None Seen); Urine Protein, UAD Negative (Negative); Urine Specific Gravity 1.026 (1.001-1.035); Urine Squamous Epithelial Cell FEW /hpf (<5); Urine Urobilinogen Normal (Negative); Urine WBC 3 /HPF (0-5); Urine pH 5.5 (5.0-9.0)
[2024-12-14 19:00] LABS: CRP High Sensitivity 1.29 mg/dL (<1.0)
[2024-12-14 19:03] LABS: Amphetamine Screen, Urine Neg (NEGATIVE); Barbiturate Scree,Urine Neg (NEGATIVE); Benzodiazephine Screen, Urine Neg (NEGATIVE); Cannabinoid Screen, Urine Pos (NEGATIVE); Cocaine Screen, Urine Neg (NEGATIVE); Opiate Scree,Urine Neg (NEGATIVE); Phencyclidine Screen, Urine Neg (NEGATIVE)
[2024-12-14 19:10] LABS: Lipase 31 U/L (12-53)
--- NOTE | 2024-12-14 19:29 | DVH ---
INDICATION: cp TECHNIQUE: Frontal view of the chest. COMPARISON: XY CHEST XRAY 1 VIEW on DOS: 06/11/23, XY CHEST PORTABLE on DOS: 04/22/23 FINDINGS: Findings. The heart and mediastinal contours are grossly unremarkable. There is no evidence of pleur al disease. The lungs are clear. The bony structures of the chest are intact without fracture. IMPRESSION: 1. No evidence of acute disease.
[2024-12-14 19:35] VITALS: PULSE 116; O2SAT 96
--- NOTE | 2024-12-14 19:41 | DVH ---
Exam: CT CT AB PEL WO CON-NO ORAL OR IV History: LLQ PAIN Comparison Study: None Technique: Multidetector spiral CT of the abdomen was performed from lung bases to pubic symphysis. Imaging was performed without IV contrast. Axial, coronal and sagittal multiplanar reformats were ob tained from the axial data set by the technologist. Radiation Dose : 1. Abdomen/Pelvis: CTDIvol 27.45 mGy, DLP 1536.67 mGy*cm. Findings: Evaluation of solid organs is limited due to lack of intravenous contrast use. Lung Bases: No abnormality demonstrated. Liver: Liver is normal in size. No focal lesions noted. Gallbladder and Biliary Tree: No abnormality demonstrated. Spleen: No abnormality demonstrated. Pancreas: No abnormality demonstrated. Adrenal Glands: No abnormality demonstrated. Kidneys: No abnormality demonstrated. Bladder: Non distended. Bowel: Stomach appears grossly unremarkable. No abnormally dilated or thick-walled loops of large or small bowel noted. Appendix appears unremarkable. Ascites: Absent Lymphadenopathy: No evidence of lymphadenopathy. Abdominal Wall and Mesentery: Unremarkable. Vasculature: Unremarkable given lack of intravenous contrast. Pelvic Organs: Unremarkable Musculoskeletal: No bony lesions or fracture. IMPRESSION: No abnormality demonstrated. Radiation optimization: All CT scans at this facility use at least one of these dose optimization ami hniques: automated exposure control mA and/or kV adjustment per patient size (includes targeted exam s where dose is matched to clinical indication) or iterative reconstruction.
[2024-12-14] MEDS: NITROGLYCERIN 0.4 MG SL TAB SL ONE (19:50)
--- NOTE | 2024-12-14 19:58 | DVH ---
INDICATION: LLQ PAIN TECHNIQUE: Multiple real-time grayscale transabdominal sonographic images along with color and duplex Doppler of the uterus and ovaries were obtained. COMPARISON: None FINDINGS: Uterus measures approximately 7.3 x 5.3 x 4.4 cm and appears unremarkable apart from a probable small 7 mm nabothian cyst. Endometrium measures 5 mm in thickness and appears unremarkable. Right ovary measures approximately 3.1 x 2.4 x 3.1 cm and the left 3.7 x 2.4 x 3.9 cm. Both ovaries a ppear within normal limits demonstrating small follicles. Color and duplex Doppler interrogation of t he ovaries demonstrated symmetric vascular flow to both ovaries. IMPRESSION: No abnormality demonstrated.
[2024-12-14] MEDS: KETOROLAC TROMETH 30 MG/ML 1ML VIAL IV ONE (20:16)
--- NOTE | 2024-12-14 20:51 | DVH ---
CT HEAD WITHOUT CONTRAST INDICATION: BLANKENSHIP COMPARISON: None TECHNIQUE: CT of the head without intravenous contrast. RADIATION DOSE: CTDIvol: mGy, DLP: mGy*cm FINDINGS: There is no evidence of intracranial hemorrhage, infarct, extra-axial collection, mass effect, midli ne shift, herniation or hydrocephalus. The ventricles, sulci and cisterns are normal. The taylor-white differentiation is normal. Visualized paranasal sinuses and mastoid air cells are clear. Soft tissues and osseous structures are unremarkable. IMPRESSION: No intracranial abnormality.
[2024-12-14] MEDS ORDERED: IBUPROFEN 800 MG TAB PO PRN (21:30)
[2024-12-14] MEDS ORDERED: ACETAMINOPHEN 325 MG TAB PO PRN (21:30)
[2024-12-14] MEDS: HYDROcodone-ACET 5/325MG TAB PO ONE ×2 (21:35→21:44)
[2024-12-14] MEDS: ONDANSETRON HCL 4 MG/2 ML VIAL IV PRN (21:43)
[2024-12-14 21:57] LABS: Rapid Influenza A Negative (Negative); Rapid Influenza B Negative (Negative)
[2024-12-14 22:04] LABS: COVID19 ANTIGEN SOFIA FIA POSITIVE (NEGATIVE)
[2024-12-14] MEDS: SODIUM CHLORIDE 0.9% 1,000 ML IV SCH (22:34)
[2024-12-14 22:44] VITALS: PULSE 104; RESP 18; O2SAT 93
[2024-12-14] MEDS: DexAMETHasone SOD PHOS 10MG/1ML VIAL INJ IV ONE (23:04)
[2024-12-14 23:43] VITALS: BP 113/77; PULSE 93; RESP 18; TEMP 98.8; O2SAT 95
[2024-12-14 23:45] VITALS: PULSE 93; RESP 16; O2SAT 95
[2024-12-15] VITALS (7 sets, daily range): BP systolic 106–132; BP diastolic 68–78; PULSE 85–104; RESP 17–19; TEMP 96.8–99.1; O2SAT 94–97
--- NOTE | 2024-12-15 02:18 | DVHHP2 ---
History of Present Illness Reason for Visit: covid + History of Present Illness 29-year-old female with no significant past medical or surgical history, uses marijuana only. She presents with a two-day history of frontal/temporal headache, left anterior chest wall pain reproducible on palpation, and intermittent numbness/tingling in left upper and lower extremities. She reports home blood pressure readings in the 150s systolic. Denies regular medication use. Review of Systems: Constitutional: Denies fever, chills, diaphoresis HEENT: Denies photophobia, vision loss, eye pain/discharge ENT: Denies ear pain/discharge, tinnitus Throat/Neck: Denies sore throat, dysphagia, neck pain/stiffness Cardiac: Denies palpitations Pulmonary: Denies SOB, wheezing, hemoptysis GI: Denies nausea, vomiting, abdominal pain, melena, hematochezia Skin: No rash or pruritus Review of Systems Allergies: Coded Allergies: NO KNOWN ALLERGIES (Unverified , 05/02/22) Medications Current Medications Medications Dose Ordered Sig/Marcela Route Start Time Stop Time Status Last Admin Dose Admin Sodium Chloride 1,000 ml @ 60 mls/hr [id number] IV 12/14/24 21:15 12/14/24 22:34 60 MLS/HR Ondansetron HCl 4 mg Q4HP PRN IV 12/14/24 21:15 12/14/24 21:43 4 MG Enoxaparin Sodium 40 mg DAILY SC 12/15/24 10:00 Ketorolac Tromethamine 30 mg Q6HPRN PRN IV 12/14/24 21:30 12/19/24 21:29 Ibuprofen 800 mg Q8HP PRN PO 12/14/24 21:30 Acetaminophen 650 mg Q6HP PRN PO 12/14/24 21:30 Exam Vital Signs Vital Signs Date Time Temp Pulse Resp B/P (MAP) Pulse Ox O2 Delivery O2 Flow Rate FiO2 12/15/24 01:00 98.5 91 18 106/68 (81) 96 98.5 12/14/24 23:45 Room Air* 0 21 General Appearance: Alert, Oriented X3 HEENT: Atraumatic Respiratory: Clear to auscultation Cardiovascular: Regular rate Abdominal: Normal bowel sounds, Soft Extremities: No clubbing, No cyanosis Skin: No rashes, No breakdown Neuro: Normal gait, Normal speech Psych/Mental Status: Mental status NL, Mood NL Labs/Xrays Labs Test 12/14/24 21:05 12/14/24 20:35 12/14/24 18:34 12/14/24 18:24 Range/Units Influenza Type A Antigen Negative Negative Influenza Type B Antigen Negative Negative SARS-CoV-2 Antigen (Rapid) Positive NEGATIVE Troponin I High Sensitivity < 3 L </=34 ng/L Urine Color Yellow Yellow Urine Clarity Clear Clear Urine pH 5.5 5.0-9.0 Urine Specific [place] 1.026 1.001-1.035 Urine Protein Negative Negative Urine Ketones Negative Negative Urine Blood Trace H Negative /uL Urine Nitrite Negative Negative Urine Bilirubin Negative Negative Urine Urobilinogen Normal Negative mg/dL Urine Leukocyte Esterase Negative Negative /uL Urine RBC 2 0 - 4 /hpf Urine Microscopic WBC 3 0-5 /HPF Urine Squamous Epithelial Cells Few <5 /hpf Urine Bacteria None seen None Seen /hpf Urine Mucus Few None Seen Urine Glucose Normal Normal mg/dL Urine Opiates Screen Neg NEGATIVE Urine Fentanyl Screen Neg NEGATIVE Urine Barbiturates Screen Neg NEGATIVE Urine Phencyclidine Screen Neg NEGATIVE Urine Amphetamines Screen Neg NEGATIVE Urine Benzodiazepines Screen Neg NEGATIVE Urine Cocaine Screen Neg NEGATIVE Urine Cannabinoids Screen Pos NEGATIVE Urine Test Negative Negative Test 12/14/24 18:11 Range/Units White Blood Count 8.5 4.4-10.8 10^3/uL Red Blood Count 4.82 4.0-5.20 10^6/uL Hemoglobin 14.6 12.2-16.2 g/dL Hematocrit 42.4 36.0-46.0 % Mean Corpuscular Volume 88.0 80.0-100.0 fL Mean Corpuscular Hemoglobin 30.3 28.0-32.0 pg Mean Corpuscular Hemoglobin Concent 34.4 32.0-36.0 g/dL Red Cell Distribution Width 14.1 11.8-14.3 % Platelet Count 330 140-450 10^3/uL Mean Platelet Volume 7.4 6.9-10.8 fL Neutrophils (%) (Auto) 82.3 H 37.0-80.0 % Lymphocytes (%) (Auto) 8.2 L 10.0-50.0 % Monocytes (%) (Auto) 6.6 0.0-12.0 % Eosinophils (%) (Auto) 2.0 0.0-7.0 % Basophils (%) (Auto) 0.9 0.0-2.0 % Neutrophils # (Auto) 7.0 1.6-8.6 10 ^3/uL Lymphocytes # (Auto) 0.7 0.4-5.4 10 ^3/uL Monocytes # (Auto) 0.6 0-1.3 10 ^3/uL Eosinophils # (Auto) 0.2 0-0.8 10 ^3/uL Basophils # (Auto) 0.1 0-0.2 10 ^3/uL Nucleated Red Blood Cells 0.1 % Sodium Level 137 136-145 mmol/L Potassium Level 4.1 3.5-5.1 mmol/L Chloride Level 101 98-107 mmol/L Carbon Dioxide Level 26 20-31 mmol/L Anion Gap 10 5-15 Blood Urea Nitrogen 8 L 9-23 mg/dL Creatinine 0.95 0.550-1.02 mg/dL Glomerular Filtration Rate Calc 83 >90 mL/min BUN/Creatinine Ratio 8.4 L 10.0-20.0 Serum Glucose 84 74-106 mg/dL Lactic Acid Level 1.1 0.4-2.0 mmol/L Calcium Level 10.1 8.7-10.4 mg/dL Magnesium Level 1.6 1.6-2.6 mg/dL Total Bilirubin 0.4 0.2-1.0 mg/dL Aspartate Amino Transferase (AST) 14 13-40 U/L Alanine Aminotransferase (ALT) 35 7-40 U/L Alkaline Phosphatase 88 46-116 U/L C-Reactive Protein High Sensitivity 1.29 H <1.0 mg/dL B-Type Natriuretic Peptide 2.77 0-100 pg/mL Total Protein 7.2 5.7-8.2 g/dL Albumin 4.8 3.2-4.8 g/dL Lipase 31 12-53 U/L Assessment/Plan Assessment/Plan #Sepsis due to covid infection #Acute intractable headache #Viral pneumonitis #Chest pain secondary to viral pneumonitis #CBD use Admit Med surg IV fluids 60cc/h Tylenol + Ibuprofen + Ketorolac for pain Enoxaparin SC Dexamethasone given Case discussed with Dr Mcgraw Full code Plan discussed with: Patient, Other (rn) My Orders Orders - BARBARA GOMEZ RESIDENT Procedure Category Date Status Time Admit ADMIT 12/14/24 Transmitted 21:04 Code Status CODE 12/14/24 Transmitted 21:04 Review Orders With TAMANNA 12/14/24 In Process Adm. 21:04 Regular Diet DIET 12/15/24 Transmitted Breakfast Sodium Chloride 0.9% PHA 12/14/24 In Process 21:15 Notify Md Of Changes TAMANNA 12/14/24 In Process From Base 21:04 Advance Directive TAMANNA 12/14/24 In Process 21:04 Patient Condition ORDERS 12/14/24 Transmitted 21:04 Allergies TAMANNA 12/14/24 In Process 21:04 Ondansetron Hcl PHA 12/14/24 In Process (Zofran) 21:15 Enoxaparin Sodium PHA 12/15/24 In Process (Lovenox) 10:00 Electrocardigram EKG 12/14/24 Logged 21:14 Ketorolac Injection PHA 12/14/24 In Process (Toradol Injection) 21:30 Ibuprofen Tablet PHA 12/14/24 In Process (Motrin Tablet) 21:30 Acetaminophen Tablet PHA 12/14/24 In Process (Tylenol Tablet) 21:30 Date of Service: December 14, 2024 Billing Provider: PHILOMENA MCGRAW MD Common Visit Codes: 62758-DXLEYET INP/OBS CARE (HIGH) Secondary Visit Codes: 51979-ANTJELUA CARE PLAN 30 MINUTES BARBARA GOMEZ RESIDENT December 15, 2024 02:18
--- NOTE | 2024-12-15 02:32 | ECG ---
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
--- NOTE | 2024-12-15 02:32 | ECG ---
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
[2024-12-15 07:15] LABS: Basophils # (auto) 0 10 ^3/uL (0-0.2); Basophils % (auto) 0.6 % (0.0-2.0); Eosinophils # (auto) 0 10 ^3/uL (0-0.8); Eosinophils % (auto) 0.3 % (0.0-7.0); Hematocrit 42.1 % (36.0-46.0); Hemoglobin 14.3 g/dL (12.2-16.2); Lymphocytes # (auto) 0.6 10 ^3/uL (0.4-5.4); Lymphocytes % (auto) 11.2 % (10.0-50.0); Mean Corpuscular Hemoglobin 30.5 pg (28.0-32.0); Mean Corpuscular Hgb Conc. 34.1 g/dL (32.0-36.0); Mean Corpuscular Volume 89.5 fL (80.0-100.0); Monocytes # (auto) 0.2 10 ^3/uL (0-1.3); Monocytes % (auto) 2.9 % (0.0-12.0); Neutrophils # (auto) 4.9 10 ^3/uL (1.6-8.6); Platelet Count (auto) 333 10^3/uL (140-450); Red Cell Distribution Width 13.9 % (11.8-14.3); White Blood Cell 5.7 10^3/uL (4.4-10.8)
[2024-12-15 07:33] LABS: Alanine Aminotransferase 31 U/L (7-40); Alkaline Phosphatase 84 U/L (46-116); Anion Gap 10 (5-15); BUN/Creatinine Ratio 10.5 (10.0-20.0); Calcium 9.5 mg/dL (8.7-10.4); Carbon Dioxide 23 mmol/L (20-31); Chloride 106 mmol/L (98-107); Potassium 4.1 mmol/L (3.5-5.1); Sodium 139 mmol/L (136-145)
[2024-12-15 07:34] LABS: Total Protein 7.1 g/dL (5.7-8.2)
[2024-12-15 07:35] LABS: Albumin 4.5 g/dL (3.2-4.8)
[2024-12-15 07:37] LABS: Aspartate Aminotransferase 12 U/L (13-40); Bilirubin, Total 0.2 mg/dL (0.2-1.0); Blood Urea Nitrogen 9 mg/dL (9-23); Glucose 135 mg/dL (74-106)
[2024-12-15] MEDS: ENOXAPARIN SOD 40 MG/0.4 ML SYRINGE SC SCH (09:02)
[2024-12-15] MEDS: HYDROmorphone HCL 2 MG/ML VL/or syr IV PRN (11:46)
[2024-12-15] MEDS ORDERED: KETOROLAC TROMETH 30 MG/ML 1ML VIAL IV PRN (20:00)
[2024-12-15] MEDS: KETOROLAC TROMETH 30 MG/ML 1ML VIAL IV PRN (20:14)
[2024-12-15] MEDS: diphenhdrAMINE HCL 50 MG/1 ML VL IV ONE (20:14)
[2024-12-16 05:00] VITALS: BP 126/79; PULSE 79; RESP 18; TEMP 98.2; O2SAT 98
[2024-12-16 09:00] VITALS: BP 116/68; PULSE 78; RESP 18; TEMP 97.3; O2SAT 99
[2024-12-16] MEDS: diphenhdrAMINE HCL 25 MG CAP PO PRN (10:55)
== END 2024-12-16 13:26 | disposition home or self-care (01) | DRG 720 ==
LOC: ER 17:15 → OVERFLOW 21:04 → EAST 23:36
PROVIDERS: ATTEND Emergency Medicine
DX: A41.89 Other specified sepsis (principal); J12.82 Pneumonia due to coronavirus disease 2019; U07.1 COVID-19; F12.90 Cannabis use, unspecified, uncomplicated; Z79.899 Other long term (current) drug therapy; Z79.2 Long term (current) use of antibiotics
CPT/HCPCS: 36415; 70450; 71045; 74176; 76830; 76856; 80053; 80307; 81001; 81025; 83605; 83690; 83735; 83880; 84484; 85025; 86141; 87426; 87804; 93005; 96361; 96374; G0378; J1100; J1885; J2405